=== PATIENT | female | born 1975 | race African-American/Black ===

== ENCOUNTER 2018-08-24 12:02 | Emergency (ER) | payer SELFPAY ==
[~2018-08-24] VITALS: Ht 157.5 cm; Wt 89.0 kg
[2018-08-24 12:08] VITALS: Ht 157.5 cm; Wt 89.0 kg
[2018-08-24] MEDS ORDERED: SOD CHLORIDE 0.9% 1,000 ML IV STA (12:22)
[2018-08-24] MEDS ORDERED: LORAZEPAM 2 MG INJ IV ONE (12:30)
[2018-08-24] MEDS ORDERED: DIPHENHYDRAMINE 50 MG INJ IV ONE (13:30)
[2018-08-24] MEDS ORDERED: SOD CHLORIDE 0.9% 100 ML ONE (13:45)
[2018-08-24] MEDS ORDERED: IOHEXOL 100 ML ONE (13:45)
--- NOTE | 2018-08-24 13:59 | ERD ---
ER Documentation Chief Complaint Chief Complaint PALPITATIONS ONSET 1130 TODAY HPI This is a 43-year-old female, who is otherwise healthy, return from [place] and visiting who presents for evaluation of palpitations. Patient reports that she feels shaky and symptoms started about 1130. She denies any chest pain or shortness of breath, states took ibuprofen earlier today, but otherwise did not take any other medications. She has not had a fever. She has no history of drug use, drank coffee, but otherwise denies taking any stimulants. She denies any bleeding. ROS All systems reviewed and are negative except as per history of present illness. Medications Home Meds No Active Prescriptions or Reported Meds Allergies Allergies: Coded Allergies: No Known Allergy (Unverified , 08/24/18) PMhx/Soc History of Surgery: No Anesthesia Reaction: No Hx Neurological Disorder: No Hx Respiratory Disorders: No Hx Cardiac Disorders: No Hx Psychiatric Problems: No Hx Miscellaneous Medical Probl: No Hx Alcohol Use: No Hx Substance Use: No Hx Tobacco Use: No Smoking Status: Never smoker Physical Exam Vitals Vital Signs Date Temp Pulse Resp B/P (MAP) Pulse Ox O2 O2 Flow FiO2 Time Delivery Rate 08/24/18 98.1 121 18 154/84 100 Room Air 13:18 (107) 08/24/18 98.1 127 18 169/81 99 12:08 (110) Physical Exam Const: Patient tremulous, and anxious appearing Head: Atraumatic Eyes: Normal Conjunctiva ENT: Normal External Ears, Nose and Mouth. Neck: Full range of motion. No meningismus. Resp: Clear to auscultation bilaterally Cardio: Sinus tachycardia with regular rhythm, no murmurs Abd: Soft, non tender, non distended. Normal bowel sounds Skin: No petechiae or rashes Back: No midline or flank tenderness Ext: No cyanosis, or edema Neur: Awake and alert Psych: Normal Mood and Affect Result Diagram: 08/24/18 1221 08/24/18 1221 Results 24 hrs Laboratory Tests Test 08/24/18 12:21 White Blood Count 9.7 10^3/ul Red Blood Count 3.86 10^6/ul Hemoglobin 9.7 g/dl Hematocrit 31.8 % Mean Corpuscular Volume 82.4 fl Mean Corpuscular Hemoglobin 25.1 pg Mean Corpuscular Hemoglobin Concent 30.5 g/dl Red Cell Distribution Width 18.2 % Platelet Count 365 10^3/UL Mean Platelet Volume 9.9 fl Immature Granulocytes % 0.200 % Neutrophils % 54.2 % Lymphocytes % 34.8 % Monocytes % 7.6 % Eosinophils % 2.8 % Basophils % 0.4 % Nucleated Red Blood Cells % 0.0 /100WBC Immature Granulocytes # 0.020 10^3/ul Neutrophils # 5.3 10^3/ul Lymphocytes # 3.4 10^3/ul Monocytes # 0.7 10^3/ul Eosinophils # 0.3 10^3/ul Basophils # 0.0 10^3/ul Nucleated Red Blood Cells # 0.0 10^3/ul Prothrombin Time 12.8 Sec Prothrombin Time Ratio 1.0 INR International Normalized Ratio 0.95 D-Dimer 598.96 ng/ml D-Dimer Comment Sodium Level 145 mmol/L Potassium Level 3.6 mmol/L Chloride Level 107 mmol/L Carbon Dioxide Level 26 mmol/L Anion Gap 12 Blood Urea Nitrogen 15 mg/dl Creatinine 0.86 mg/dl Est Glomerular Filtrat Rate mL/min > 60 mL/min Glucose Level 148 mg/dl Calcium Level 9.5 mg/dl Total Bilirubin 0.4 mg/dl Direct Bilirubin 0.00 mg/dl Indirect Bilirubin 0.4 mg/dl Aspartate Amino Transf (AST/SGOT) 22 IU/L Alanine Aminotransferase (ALT/SGPT) 15 IU/L Alkaline Phosphatase 72 IU/L Troponin I < 0.012 ng/ml Total Protein 8.4 g/dl Albumin 4.2 g/dl Globulin 4.20 g/dl Albumin/Globulin Ratio 1.00 Thyroid Stimulating Hormone (TSH) 1.140 MIU/L Current Medications Medications Dose Sig/Gwendolyn Start Time Status Last (Trade) Ordered Route PRN Stop Time Admin Dose Reason Admin Sodium 1,000 ml @ Q1H STAT 08/24/18 DC 08/24/18 Chloride 1,000 mls/hr IV 12:22 12:31 08/24/18 13:21 Lorazepam 0.5 mg ONCE ONCE 08/24/18 DC 08/24/18 (Ativan) IV 12:30 12:31 08/24/18 12:31 25 mg ONCE ONCE 08/24/18 DC 08/24/18 Diphenhydrami IV 13:30 13:15 ne HCl 7/14/19 13:31 (Benadryl) Propranolol 40 mg ONCE ONCE 08/24/18 HCl PO 14:00 (Inderal) 08/24/18 14:01 Iohexol 100 ml @ ud STK-MED 08/24/18 DC ONCE .ROUTE 13:45 08/24/18 13:46 Sodium 100 ml @ ud STK-MED 08/24/18 DC Chloride ONCE .ROUTE 13:45 08/24/18 13:46 Procedures/MDM This is a 43-year-old female, who presents for evaluation of palpitations. On exam the patient was a bit anxious appearing, however she was otherwise he medically stable, did have notable sinus tachycardia. She had no chest pain, and no cardiopulmonary symptoms and no active bleeding, her labs are overall unremarkable except for mild anemia, otherwise her troponin was negative, her chest x-ray was unremarkable, and her TSH was within normal limits. She did not exhibit any toxidrome, a d-dimer was ordered which was mildly positive, thus a CT angio was ordered to follow-up, if negative, patient can likely be discharged if she remains stable, with prescription for propanolol pending PMD follow-up. Signed out to Dr. Frazier. EKG: Rate/Rhythm: Sinus tachycardia QRS, ST, T-waves: No changes consistent w/ acute ischemia Impression: No evidence of ischemia or arrhythmia Departure Diagnosis: Primary Impression: Palpitations Condition: Stable BALJINDER LECHUGA MD Aug 24, 2018 13:59
[2018-08-24] MEDS ORDERED: PROP20TA4 PO (14:00)
[2018-08-24] MEDS ORDERED: PROPRANOLOL 40 MG TAB PO ONE (14:00)
[2018-08-24 15:07] VITALS: BP 123/89; PULSE 78; RESP 18
== END 2018-08-24 15:17 | disposition home or self-care (01) ==
LOC: E/R 12:02
DX: R00.2 Palpitations (principal); R07.9 Chest pain, unspecified
CPT/HCPCS: 36415; 71045; 71275; 80053; 81025; 84443; 84484; 85025; 85378; 85610; 93005; 96374; 96375; 99285; J1200; J2060; J7030; Q9967